=== PATIENT | male | born 1995 | race Caucasian/White ===

== ENCOUNTER 2023-02-21 04:35 | Emergency (ER) | payer BC, SELFPAY ==
[2023-02-21 04:41] VITALS: BP 116/58; PULSE 50; RESP 16; TEMP 36.3; O2SAT 100; BMI 26.1
--- NOTE | 2023-02-21 05:13 | ED.GENADULT ---
HPI - General Adult General Chief complaint: Eye Problems Stated complaint: something stuck in left eye Time Seen by Provider: 02/21/23 05:13 Source: patient Mode of arrival: Ambulatory History of Present Illness HPI narrative: Otherwise healthy 27-year-old young man was doing some yd work pulling out IV yesterday felt that he got a piece of debris in his left eye and it is continued to bother him all night. It has been too troublesome to allow him to sleep any comes in for further evaluation. He describes no vision change or discharge from the eye. Related Data Home Medications Medication Instructions Recorded Confirmed ibuprofen 200 mg tablet 600 mg PO BID PRN 11/13/18 01/06/20 melatonin 12 mg PO BEDTIME PRN 01/06/20 Allergies Allergy/AdvReac Type Severity Reaction Status Date / Time No Known Drug Allergies Allergy Unverified 01/06/20 14:54 Review of Systems Review of Systems Narrative: Pertinent positive and negative findings as per HPI Patient History Social History Smoking Status: Never smoker Tobacco: How many years used: 1 quit status: considering quitting (I need to for school) second hand exposure: No alcohol intake: current (A couple beers on the weekends) substance use type: does not use Smoking Status: Never smoker alcohol intake frequency: a few times a week Substance Use Type: does not use Exam Initial Vital Signs Initial Vital Signs: Vital Signs Temperature 97.4 F L 02/21/23 04:41 Pulse Rate 50 L 02/21/23 04:41 Respiratory Rate 16 02/21/23 04:41 Blood Pressure 116/58 L 02/21/23 04:41 Pulse Oximetry 100 02/21/23 04:41 Oxygen Delivery Method Room Air 02/21/23 04:41 General: Alert appropriate in no acute distress HEENT: Left sclera is mildly injected. The left eye is anesthetized no obvious abnormalities to gross visual exam. When the eyelid is inverted there is a actually fairly large bit of plant debris that is adherent to the inner lid. This was gently removed with a Q-tip. Fluorescein staining was done and there is no evidence of any fluorescein uptake to suggest corneal injury. Respiratory: Able to speak in full sentences, no obvious respiratory distress Skin: No obvious rashes, warm and dry Neurologic: Grossly intact no obvious asymmetries or abnormalities Psych: appropriate insight and affect, cooperative Course Orders Ordered: Proparacaine HCl (Proparacaine 0.5% Ophth Viktoriya) 1 drops EYE-LEFT PRN PRN PRN Reason: Pain, Mild (1-3) Discontinued Medications Fluorescein Sodium (Fluorescein 1 Mg Strip) 1 mg EYE-LEFT NOW ONE Stop: 02/21/23 04:56 Vital Signs Vital signs: Vital Signs - 8 hr 02/21/23 04:41 Temperature 97.4 F L Pulse Rate 50 L Respiratory Rate 16 Blood Pressure 116/58 L Pulse Oximetry 100 Oxygen Delivery Method Room Air Medical Decision Making MDM Narrative Medical decision making narrative: CC: Foreign body sensation left eye Data collected from: patient, Differential considered: Foreign body, corneal laceration, eyelid abnormality Exam documented above, pertinent findings include: Foreign body adherent under the upper lid at the very edge of the tarsal plate when the lid is everted. Removed without difficulty. No evidence of corneal abrasion Discussion: 27-year-old gentleman who got some debris in the left eye doing yd work yesterday. It was quite high up under the lid and inherent to the lid. It is now removed. No evidence of corneal abrasion symptoms are significantly improved patient expresses relief and is safe for discharge home Discharge Plan Departure Patient Disposition: Home Clinical Impression: Foreign body, intraocular, left eye Qualifiers: Encounter type: initial encounter Qualified Code(s): S05.52XA - Penetrating wound with foreign body of left eyeball, initial encounter Instructions: DI for Foreign Body in the Eye Activity Restrictions/Additional Instructions: Thank you for coming in tonight You had a fairly large bit of plant debris, and almost looks like a small thorn, that was stuck very high up on the inside of your eyelid. Fortunately it did not cause any abrasions to the cornea. With some topical numbing medicine we were able to get the small bit of debris unstuck from the inner eyelid. Everything should feel better and should continue to improve. If you notice that your having new symptoms, increasing redness to the eye any vision changes please feel free to return to the ER Prescriptions: No Action ibuprofen 200 mg tablet 600 mg PO BID PRN melatonin 12 mg PO BEDTIME PRN Referrals: Ivory Poole ARNP [Primary Care Provider] - Stand Alone Forms: Patient Portal/API
[2023-02-21] MEDS: FLUORESCEIN 1 MG STRIP EYE-LEFT (05:35)
[2023-02-21] MEDS: PROPARACAINE 0.5% OPHTH SOL 1 DROPS EYE-LEFT (05:35)
[2023-02-21 06:11] VITALS: BP 112/54; PULSE 56; RESP 14; TEMP 36.4; O2SAT 100
== END 2023-02-21 06:00 | disposition home or self-care (01) ==
PROVIDERS: Emergency Provider Emergency Medicine; Family Provider Pediatrics; PCP Nurse Practitioner Family
DX: S05.52XA Penetrating wound with foreign body of left eyeball, initial encounter (principal)
CPT/HCPCS: 99282